=== PATIENT | female | born 1950 | race Caucasian/White ===

== ENCOUNTER 2020-08-07 01:26 | Emergency (ER) | payer MEDICARE, OTHER ==
[~2020-08-07] VITALS: Ht 162.6 cm; Wt 67.0 kg
[2020-08-07 02:00] LABS: CALCIUM 9.3 mg/dL (8.5-10.1); CREATININE 1.1 mg/dL (0.6-1.0); GFR 48.8; POTASSIUM 4.2 mmol/L (3.5-5.1)
[2020-08-07 02:06] LABS: ALBUMIN 3.7 g/dL (3.4-5.0); TOTAL BILIRUBIN 0.4 mg/dL (0.2-1.0); TOTAL PROTEIN 7.3 g/dL (6.4-8.2)
--- NOTE | 2020-08-07 02:07 | PHYS DOC ---
Past History Past Medical History: Diabetes, Hypertension, Renal Failure Past Surgical History: Cholecystectomy, Hysterectomy Alcohol Use: Occasionally Adult General Chief Complaint Chief Complaint: MECHANICAL FALL HPI HPI Patient is a 70-year-old female who presents via POV for follow-up. Patient who was at home celebrating 33 anniversary with her admits to drinking 3 glasses of red wine and x2 glasses of champagne. Was subsequently ambulating up stairs when she lost her balance and fell hitting her head on wooden stairs. No loss of consciousness was reported, patient reporting mild posterior occiput pain at location where she hit her head without any other abnormalities. She is not on any blood thinners. brought her to ER given that she was drinking and hit head Review of Systems Review of Systems Fourteen body systems of review of systems have been reviewed. See HPI for pertinent positives and negative responses, other pichardo all other systems are negative, non-pertinent or non-contributory Allergies Allergies Allergies Coded Allergies Type Severity Reaction Last Updated Verified ranitidine Allergy Unknown 08/07/20 Yes Physical Exam Physical Exam Constitutional: Pt is oriented to person, place, and time. Pt appears well- developed and well-nourished. Appears intoxicated HENT: Head: Normocephalic and atraumatic. Mouth/Throat: Oropharynx is clear and moist. No hematomas or lacerations or abrasions to face or scalp OP clear, no blood, no malocclusion, dentition intact Nares clear, no nasal septal hematoma TMs clear, no hemotympanum Midface stable Eyes: Conjunctivae and EOM are normal. Pupils are equal, round, and reactive to light. Neck: C-spine midline nontender, no step-offs Cardiovascular: Normal rate, regular rhythm and normal heart sounds. Pulmonary/Chest: Effort normal and breath sounds normal. No respiratory distress. No wheezes. CTA bilaterally Abdominal: Soft. Bowel sounds are normal. Pt exhibits no distension. There is no tenderness. Musculoskeletal: No bony tenderness to extremities, no deformities, full ROM extremities Chest wall stable Pelvis stable and non-tender No vertebral TTP and spine without stepoffs Neurological: Pt is alert and oriented to person, place, and time. Moving all extremities willfully, able to wiggle all fingers and toes Alert and oriented x 3 Sensation grossly intact Skin: Skin is warm and dry. No abrasions, no lacerations Psychiatric: Behavior is appropriate for situation Nursing note and vitals reviewed. Current Patient Data Vital Signs Vital Signs Date Time Temp Pulse Resp B/P (MAP) Pulse Ox O2 Delivery O2 Flow Rate FiO2 08/07/20 01:28 98.6 100 16 148/94 (112) 95 Room Air Lab Results Laboratory Tests Test 08/07/20 01:30 Ethyl Alcohol Level 185 mg/dL (0-10) H EKG EKG [] Radiology/Procedures Radiology/Procedures PROCEDURE: CT HEAD AND CERVICAL SPINE WO EXAMINATION: CT HEAD AND CERVICAL SPINE WO CLINICAL HISTORY: Fall with head injury, intoxication TECHNIQUE: Serial axial images without IV contrast were obtained from the vertex to the foramen magnum. CT of the cervical spine without IV contrast. Spiral, high resolution axial images were obtained from the skull base to the cervicothoracic junction with sagittal and coronal planar reconstructions. CT Dose Reduction Employed: One or more of the following individualized dose reduction techniques were utilized for this examination: 1. Automated exposure control 2. Adjustment of the mA and/or kV according to patient size 3. Use of iterative reconstruction technique. COMPARISON: None FINDINGS: BRAIN: Post-operative change: None. Acute change: No evidence of an acute infarct or other acute parenchymal process. Hemorrhage: No evidence of acute intracranial hemorrhage. Mass Lesion / Mass Effect: There is no evidence of an intracranial mass or extraaxial fluid collection. No significant mass effect. Chronic change: None apparent. Parenchyma: Mild to moderate generalized volume loss. The brain parenchyma is otherwise within normal limits for age. Ventricles: Ventricular enlargement concordant with the degree of parenchymal volume loss. Paranasal sinuses and skull base: The visualized paranasal sinuses are grossly clear. The skull base and imaged soft tissues are unremarkable. C-SPINE: Alignment: Straightening of the normal cervical lordosis, likely positional. Craniocervical junction: Craniocervical junction is normal. Osseous structures/fracture: No evidence of a lytic or blastic process in the visualized spine. No evidence of acute fracture. Cervical soft tissues: The paraspinal soft tissues are within normal limits. Degenerative changes: Atlantodental degenerative changes. Mild degenerative disc disease C5-6, C6-7, and C7-T1. [id number]-hc-[id number] facet arthropathy, greater on the left. Mild neural foraminal narrowing, greatest at C2-3 on the left. No significant spinal stenosis. Other: Probable subpleural bleb partially visualized in the left lung apex. IMPRESSION: No evidence of acute intracranial abnormality. No acute osseous abnormality involving the cervical spine. Mild cervical degenerative disc disease and neural foraminal narrowing as described. Electronically signed by: Chang Monroe DO (08/07/2020 3:47 AM) [facility] Heart Score Risk Factors: Risk Factors: DM, Current or recent (<one month) smoker, HTN, HLP, family history of CAD, obesity. Risk Scores: Risk Factors: DM, Current or recent (<one month) smoker, HTN, HLP, family history of CAD, obesity. Course & Med Decision Making Course & Med Decision Making Pertinent Labs and Imaging studies reviewed. (See chart for details) Discussed diagnosis of acute alcohol abuse. Also reviewed negative CT head and neck imaging status post fall hitting posterior head. Discussed most likely diagnosis of contusion and educated her on continued supportive care practices for this. Patient observed in ER for greater than 2 hours without any evidence of clinical deterioration. Joint decision to discharge home in improved condition with her they are able to provide care and monitor her. She has good access to outpatient primary care physician, can be seen this upcoming week for reexamination. Strict return precautions discussed with good understanding, all questions and concerns addressed prior to ER departure in improved condition Dragon Disclaimer Dragon Disclaimer This electronic medical record was generated, in whole or in part, using a voice recognition dictation system. Departure Departure: Impression: Primary Impression: Fall Additional Impression: Alcohol abuse Disposition: 01 DC HOME SELF CARE/HOMELESS Condition: STABLE Patient Instructions: Fall Prevention and Home Safety Problem Qualifiers ANUEL TAVERA DO Aug 07, 2020 02:07
--- NOTE | 2020-08-07 03:50 | RAD ---
EXAMINATION: CT HEAD AND CERVICAL SPINE WO CLINICAL HISTORY: Fall with head injury, intoxication TECHNIQUE: Serial axial images without IV contrast were obtained from the vertex to the foramen magnum. CT of the cervical spine without IV contrast. Spiral, high resolution axial images were obtained from the skull base to the cervicothoracic junction with sagittal and coronal planar reconstructions. CT Dose Reduction Employed: One or more of the following individualized dose reduction techniques were utilized for this examination: 1. Automated exposure control 2. Adjustment of the mA and/or kV according to patient size 3. Use of iterative reconstruction technique. COMPARISON: None FINDINGS: BRAIN: Post-operative change: None. Acute change: No evidence of an acute infarct or other acute parenchymal process. Hemorrhage: No evidence of acute intracranial hemorrhage. Mass Lesion / Mass Effect: There is no evidence of an intracranial mass or extraaxial fluid collection. No significant mass effect. Chronic change: None apparent. Parenchyma: Mild to moderate generalized volume loss. The brain parenchyma is otherwise within normal limits for age. Ventricles: Ventricular enlargement concordant with the degree of parenchymal volume loss. Paranasal sinuses and skull base: The visualized paranasal sinuses are grossly clear. The skull base and imaged soft tissues are unremarkable. C-SPINE: Alignment: Straightening of the normal cervical lordosis, likely positional. Craniocervical junction: Craniocervical junction is normal. Osseous structures/fracture: No evidence of a lytic or blastic process in the visualized spine. No evidence of acute fracture. Cervical soft tissues: The paraspinal soft tissues are within normal limits. Degenerative changes: Atlantodental degenerative changes. Mild degenerative disc disease C5-6, C6-7, and C7-T1. Joyq-xq-[id number] facet arthropathy, greater on the left. Mild neural foraminal narrowing, greatest at C2-3 on the left. No significant spinal stenosis. Other: Probable subpleural bleb partially visualized in the left lung apex. IMPRESSION: No evidence of acute intracranial abnormality. No acute osseous abnormality involving the cervical spine. Mild cervical degenerative disc disease and neural foraminal narrowing as described. Electronically signed by: Chang Monroe DO (08/07/2020 3:47 AM) [facility]
[2020-08-07 04:30] VITALS: BP 126/70
== END 2020-08-07 04:30 | disposition home or self-care (01) ==
LOC: ER 01:26
DX: F10.10 Alcohol abuse, uncomplicated (principal); I12.9 Hypertensive chronic kidney disease with stage 1 through stage 4 chronic kidney disease, or unspecified chronic kidney disease; N18.9 Chronic kidney disease, unspecified; E11.22 Type 2 diabetes mellitus with diabetic chronic kidney disease; W10.8XXA Fall (on) (from) other stairs and steps, initial encounter; Y93.89 Activity, other specified; Y92.89 Other specified places as the place of occurrence of the external cause; Y99.8 Other external cause status
CPT/HCPCS: 36415; 70450; 72125; 80053; 99285; G0480

== ENCOUNTER → 2021-10-03 | Outpatient (CLI) | payer MEDICARE, OTHER ==
--- NOTE | 2021-10-03 19:51 | RAD ---
MR#: [id number] Date of Study: 10/03/2021 Ordering Physician: HERSON MICHAELS, Referring Physician: HERSON MICHAELS, Tech: Denise Thomas RVT,RDMS APPROVED REPORT Bilateral Lower Extremity Venous Study for DVT Patient Location: OUT-PATIENT Indications Recent Bilateral GSV Venaseal Findings: Grayscale images of the bilateral saphenofemoral junctions were obtained. On the right side no obvio us evidence of DVT is noted in the common femoral vein. Nonetheless, the greater saphenous vein cont ains thrombus consistent with recent ablation and this approach is approximately 0.85 cm from the sap henofemoral junction. There is a right-sided Lewis's cyst measuring approximately 5.5 x 3.6 x 2.0 cm. The left saphenofemoral junction is grossly unremarkable. Left great saphenous vein has thrombus con sistent with recent ablation. Otherwise no evidence of DVT Vein Imaging (Right) CFV (R): Compressible SFJ (R): Compressible FEM (R): Compressible POP (R): Compressible DFV (R): Compressible PTV (R): Compressible GSV (R): Partially Compressible Peroneals (R): Compressible Vein Imaging (Left) CFV (L): Compressible SFJ (L): Compressible FEM (L): Compressible POP (L): Compressible DFV (L): Compressible PTV (L): Compressible GSV (L): Partially Compressible Peroneals (L): Compressible Critical Notification Critical Value: No <Conclusion> 1. Negative for DVT in the bilateral lower extremity deep veins. 2. Thrombus is noted at the cusp of the greater saphenous vein entrance into the superficial femoral vein on the right side. Signed by : Herson Michaels, Electronically Approved : 10/03/2021 19:51:45
== END ==
LOC: US 09:48
PROVIDERS: ATTEND Internal Medicine Cardiovascular Disease
DX: I82.811 Embolism and thrombosis of superficial veins of right lower extremity (principal); I87.2 Venous insufficiency (chronic) (peripheral); M71.21 Synovial cyst of popliteal space [Baker], right knee
CPT/HCPCS: 93970

== ENCOUNTER → 2021-11-09 | Outpatient (CLI) | payer MEDICARE, OTHER ==
--- NOTE | 2021-11-09 14:34 | RAD ---
MR#: [id number] Date of Study: 11/09/2021 Ordering Physician: OLIVIA PEREIRA, Referring Physician: OLIVIA PEREIRA, Tech: Denise Thomas RVT, LITO APPROVED REPORT Right Lower Extremity Venous Study for DVT Patient Location: OUT-PATIENT Indications Lower Extremity Edema: Thrombus Recent Venaseal Vein Imaging (Right) CFV (R): Compressible SFJ (R): Compressible FEM (R): Compressible POP (R): Compressible DFV (R): Compressible PTV (R): Compressible Peroneals (R): Compressible Critical Notification Critical Value: No <Conclusion> FINDINGS Grayscale images of deep veins and saphenofemoral junction right lower extremity were grossly unremar kable. The previously described thrombus/venaseal in the very proximal portion of right greater saph enous vein has resolved. The saphenofemoral junction, common femoral, superficial femoral and poplit eal veins were fully compressible. Spectral waveform and color duplex analysis was within normal sanchez its. Below the knee, the veins had spontaneous flow and be fully compressible. No evidence of deep venous thrombosis was noted. CONCLUSIONS Venous duplex scan did not show any deep venous thrombosis right lower extremity. Signed by : Olivia Pereira, Electronically Approved : 11/09/2021 14:34:17
== END ==
LOC: US 12:51
PROVIDERS: ATTEND Internal Medicine Cardiovascular Disease
DX: I82.401 Acute embolism and thrombosis of unspecified deep veins of right lower extremity (principal)
CPT/HCPCS: 93971